=== PATIENT | male | born 1970 | race Asian ===

== ENCOUNTER 2018-01-06 05:27 | Emergency (ER) | payer OTHER ==
[~2018-01-06] VITALS: Ht 175.3 cm; Wt 90.7 kg
[~2018-01-06 05:27] MED LIST: CIPROFLOXACIN500 M1 PO; [UNRECOGNIZED DRUG - OTHER]
[2018-01-06] MEDS ORDERED: CORTISPORIN OTI10 M2 OTIC (05:46)
[2018-01-06 05:51] VITALS: BP 128/87
== END 2018-01-06 05:57 | disposition home or self-care (01) ==
LOC: ER 05:27
DX: H60.91 Unspecified otitis externa, right ear (principal); K21.9 Gastro-esophageal reflux disease without esophagitis; Z85.038 Personal history of other malignant neoplasm of large intestine; Z85.048 Personal history of other malignant neoplasm of rectum, rectosigmoid junction, and anus